=== PATIENT | male | born 1960 | race Caucasian/White ===

== ENCOUNTER → 2017-10-23 07:43 | Outpatient (CLI) | payer BC ==
[2013-11-11 23:01] VITALS: BMI 25.9
[~2017-10-23 07:43] MED LIST: DOXEPIN HCL10 MG PO; PERCOCET 10/3251 TA1 PO; PRILOSEC20 MG PO; PROBIOTIC PO; TAGAMET HB200 MG; ZYRTEC10 MG PO
== END ==
LOC: D.RAD 07:43
DX: R11.2 Nausea with vomiting, unspecified (principal); K21.9 Gastro-esophageal reflux disease without esophagitis

== ENCOUNTER → 2017-11-19 10:36 | Outpatient (CLI) | payer BC, OTHER ==
[2013-11-11 23:01] VITALS: BMI 25.9
== END | disposition home or self-care (01) ==
LOC: D.NM 10:36
DX: R11.2 Nausea with vomiting, unspecified (principal)